=== PATIENT | female | born 1950 | race Caucasian/White ===

== ENCOUNTER 2016-06-08 17:04 | Emergency (ER) | payer OTHER ==
[2016-06-08 17:10] VITALS: BP 120/67; PULSE 66; TEMP 97.8; BMI 18.2
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
== END 2016-06-08 18:41 | disposition home or self-care (01) ==
LOC: JERFT 17:04
DX: F07.81 Postconcussional syndrome (principal); V49.69XD Unspecified car occupant injured in collision with other motor vehicles in traffic accident, subsequent encounter
CPT/HCPCS: 70450-TC; 99281-25